=== PATIENT | male | born 1955 | race Caucasian/White ===

== ENCOUNTER 2020-05-04 15:42 | Emergency (ER) | payer OTHER ==
[~2020-05-04] VITALS: Ht 170.2 cm; Wt 105.2 kg
[2020-05-04 19:33] VITALS: BP 138/84
== END 2020-05-04 20:24 | disposition home or self-care (01) ==
LOC: ER 15:42
DX: H10.31 Unspecified acute conjunctivitis, right eye (principal); E11.319 Type 2 diabetes mellitus with unspecified diabetic retinopathy without macular edema; Z88.0 Allergy status to penicillin; Z88.2 Allergy status to sulfonamides